=== PATIENT | male | born 1990 | race Caucasian/White ===

== ENCOUNTER 2021-09-07 23:16 | Emergency (ER) | payer SELFPAY ==
[~2021-09-07] VITALS: Ht 172.7 cm; Wt 108.9 kg
--- NOTE | 2021-09-07 23:53 | ED Chest Pain ---
General Chief Complaint: COVID19 Suspect/Confirmed Stated Complaint: COVID+,CP Source: patient Exam Limitations: no limitations History of Present Illness Date Seen by Provider: September 07, 2021 Time Seen by Provider: 23:34 Initial Comments Patient to the ER by private conveyance from home with chief complaint of intermittent 10-second long sharp stabbing chest pain up under his left breast deep nonreproducible to direct palpation or deep inspiration for the past 5 or 6 hours. The pain comes about once per hour. Patient states he came home from a trip to [place] over the weekend and him and all of his friends tested positive yesterday on home COVID tests. He says he is getting over the worst of it no longer having the chills body aches or cough until tonight he started having the pain. One of his friends who is a nurse in the [employer] told him to come get checked out. He has no personal history of coronary disease diabetes hypertension. He did have hyperlipidemia but changed his diet and his cholesterol is normal and he does not take any medications for this now. He follows at [facility] for primary care. He smokes cannabis daily but does not use nicotine products or vaporizers. He denies any other recreational drug use or alcohol use. No familial early onset coronary disease. No cough, shortness of breath, hemoptysis. Allergies and Home Medications Allergies Coded Allergies: No Known Drug Allergies (Unverified , 09/07/21) Patient Home Medication List Home Medication List Reviewed: Yes Naproxen (Naprosyn) 500 Mg Tablet, 500 MG PO BID Prescribed by: AURORA TURNER on 09/08/21 0028 Prednisone (Prednisone) 20 Mg Tab, 40 MG PO DAILY Prescribed by: AURORA TURNER on 09/08/21 0028 Review of Systems Review of Systems Constitutional: No chills, No diaphoresis EENTM: No Blurred Vision, No Double Vision, No Eye Pain Respiratory: Denies Cough, Denies Shortness of Air, Denies Wheezing Cardiovascular: Chest Pain; Denies Edema, Denies Lightheadedness Gastrointestinal: Denies Constipated, Denies Diarrhea, Denies Nausea Genitourinary: Denies Burning, Denies Discharge Musculoskeletal: No back pain, No joint pain All Other Systems Reviewed Negative Unless Noted: Yes Past Egbhjlq-Gusswt-Gfojjy Hx Patient Social History Tobacco Use?: No Use of E-Cig and/or Vaping dev: No Substance use?: Yes Substance type: Marijuana Alcohol Use?: No Physical Exam Vital Signs Vital Signs - First Documented Capillary Refill : Height, Weight, BMI Height: '" Weight: lbs. oz. kg; BMI Method: General Appearance: No Apparent Distress, WD/WN HEENT: PERRL/EOMI, TMs Normal, Normal ENT Inspection, Pharynx Normal, Moist M ucous Membranes Neck: Full Range of Motion, Normal Inspection Respiratory: Chest Non Tender, Lungs Clear, Normal Breath Sounds, No Accessory Muscle Use, No Respiratory Distress Cardiovascular: Regular Rate, Rhythm, No Edema, Normal Peripheral Pulses Extremity: Normal Capillary Refill, Normal Inspection, No Calf Tenderness, No Pedal Edema Neurologic/Psychiatric: Alert, Oriented x3 Skin: Normal Color, Warm/Dry Progress/Results/Core Measures Results/Orders Lab Results Laboratory Tests Test 09/07/21 23:52 Range/Units White Blood Count 14.0 H 4.3-11.0 10^3/uL Red Blood Count 5.23 4.30-5.52 10^6/uL Hemoglobin 14.9 13.3-17.7 g/dL Hematocrit 44 40-54 % Mean Corpuscular Volume 84 80-99 fL Mean Corpuscular Hemoglobin 29 25-34 pg Mean Corpuscular Hemoglobin Concent 34 32-36 g/dL Red Cell Distribution Width 14.6 H 10.0-14.5 % Platelet Count 313 130-400 10^3/uL Mean Platelet Volume 10.4 9.0-12.2 fL Immature Granulocyte % (Auto) 0 % Neutrophils (%) (Auto) 71 42-75 % Lymphocytes (%) (Auto) 18 12-44 % Monocytes (%) (Auto) 11 0-12 % Eosinophils (%) (Auto) 0 0-10 % Basophils (%) (Auto) 0 0-10 % Neutrophils # (Auto) 9.9 H 1.8-7.8 10^3/uL Lymphocytes # (Auto) 2.5 1.0-4.0 10^3/uL Monocytes # (Auto) 1.5 H 0.0-1.0 10^3/uL Eosinophils # (Auto) 0.0 0.0-0.3 10^3/uL Basophils # (Auto) 0.0 0.0-0.1 10^3/uL Immature Granulocyte # (Auto) 0.0 0.0-0.1 10^3/uL Neutrophils % (Manual) 75 % Lymphocytes % (Manual) 16 % Monocytes % (Manual) 7 % Eosinophils % (Manual) 1 % Reactive Lymphocytes 1 % Smudge Cells MOD Clumped Platelets NONE SEEN Hypochromasia SLIGHT Poikilocytosis SLIGHT Anisocytosis SLIGHT Microcytosis SLIGHT Sodium Level 141 135-145 MMOL/L Potassium Level 3.9 3.6-5.0 MMOL/L Chloride Level 104 98-107 MMOL/L Carbon Dioxide Level 25 21-32 MMOL/L Anion Gap 12 5-14 MMOL/L Blood Urea Nitrogen 11 7-18 MG/DL Creatinine 1.07 0.60-1.30 MG/DL Estimat Glomerular Filtration Rate 96 BUN/Creatinine Ratio 10 Glucose Level 106 H 70-105 MG/DL Calcium Level 8.9 8.5-10.1 MG/DL Corrected Calcium 8.7 8.5-10.1 MG/DL Total Bilirubin 0.5 0.1-1.0 MG/DL Aspartate Amino Transf (AST/SGOT) 29 5-34 U/L Alanine Aminotransferase (ALT/SGPT) 43 0-55 U/L Alkaline Phosphatase 53 40-136 U/L Troponin I < 0.028 <0.028 NG/ML C-Reactive Protein High Sensitivity 2.04 H 0.00-0.50 MG/DL Total Protein 6.8 6.4-8.2 GM/DL Albumin 4.2 3.2-4.5 GM/DL My Orders Orders - JOHNNY,AURORA J Continuous Ekg Monitoring (09/07/21 23:28) Ekg Tracing (09/07/21 23:28) Covid-19 External Lab Results (09/07/21 23:45) Cbc With Automated Diff (09/07/21 23:45) Comprehensive Metabolic Panel (09/07/21 23:45) Hs C Reactive Protein (09/07/21 23:45) Troponin I [place] (09/07/21 23:45) Manual Differential (09/07/21 23:52) Chest 1 View, Ap/Pa Only (09/08/21 00:01) Naproxen Tablet (Naprosyn Tablet) (09/08/21 00:45) Naproxen Tablet (Naprosyn Tablet) (09/08/21 02:00) Vital Signs/I&O 09/07/21 09/07/21 09/08/21 23:36 23:36 00:43 Temp 37.1 37.1 Pulse 80 80 Resp 16 16 B/P (MAP) 123/90 (101) 123/90 Pulse Ox 97 97 O2 Delivery Room Air Room Air Room Air Progress Progress Note #1: Time: 23:50 Progress Note Patient is not experiencing any pain at this time. We did offer some Toradol as an anti-inflammatory which he declined. I suspect he is having pleuritic pain based on his history. Plan to get some labs including a troponin, an EKG and a chest x-ray to rule out a pneumonia. Well's Criteria: 0.0 points. Low risk group: 1.3% chance of PE in an ED population. PERC: 0 criteria; No need for further workup, as <2% chance of PE. If no criteria are positive and clinicians pre-test probability is <15%, PERC Rule criteria are satisfied. Lung sounds are heard bilaterally, clear. Pneumonia is less likely. Pneumothorax is unlikely. Progress Note #2: Time: 00:36 Progress Note Naproxen 500 mg. Less likely myocarditis/pericarditis and more likely pleurisy. Initial ECG Impression Date: September 07, 2021 Initial ECG Impression Time: 23:40 Initial ECG Rate: 78 Initial ECG Rhythm: Normal Sinus Initial ECG Intervals: Normal Initial ECG Impression: Normal Initial ECG Comparisson: No Previous ECG Available Diagnostic Imaging Diagonstic Imaging: Xray Plain Films/CT/US/NM/MRI: chest Comments No acute cardiopulmonary process on 1 view chest x-ray. Osseous structures unremarkable. Unremarkable bowel gas pattern under the diaphragm. No free air. [facility] [place] [place] NAME: GINI HENSLEY [facility] REC#: [id number] PT STATUS: DEP ER : 1990 PHYSICIAN: AURORA TURNER MD ADMIT DATE: 09/07/21/ER Signed Date of Exam:09/08/21 CHEST 1 VIEW, AP/PA ONLY EXAMINATION: Chest radiograph, portable AP view. DATE: 09/08/2021 12:19 AM INDICATION: 30-year-old male, chest pain. COMPARISON: None. FINDINGS: Heart size and mediastinal contours are unremarkable. There is no identified pneumothorax. There is no large pleural effusion. There is no identified focal airspace consolidation. IMPRESSION: No identified acute cardiopulmonary abnormality. Dictated by: Dictated on workstation # [id number] Dict: 09/08/21 0658 Trans: 09/08/2142 [facility] [id number] Interpreted by: ANNIE RODAS MD Electronically signed by: ANNIE RODAS MD 09/08/2142 Reviewed: Reviewed by Me Departure Impression Primary Impression: Pleurisy Additional Impression: COVID-19 Disposition: HOME, SELF-CARE Condition: Stable Departure-Patient Inst. Decision time for Depature: 00:20 Referrals: NO,LOCAL PHYSICIAN (PCP) Primary Care Physician Patient Instructions: COVID-19 (DC), Pleuritic Chest Pain (DC) Add. Discharge Instructions: Vapor rub such as Vicks or Mentholatum as necessary for pain. Tylenol 1000 mg every 8 hours as needed for pain. Naproxen 500 mg twice a day until the pains go away. If you are not seeing some improvement in 3 or 4 days then you can start taking the steroid. Prednisone 2 tablets daily for 5 days to reduce inflammation in the chest wall leading to your pain. Return to the ER for intractable pain especially accompanied with shortness of air or other worrisome symptoms. All discharge instructions reviewed with patient and/or family. Voiced understanding. Scripts Prednisone (Prednisone) 20 Mg Tab 40 MG PO DAILY for 5 Days, #10 TAB 0 Refills Prov: AURORA TURNER 09/08/21 Naproxen (Naprosyn) 500 Mg Tablet 500 MG PO BID, #30 TAB 0 Refills Prov: AURORA TURNER 09/08/21 AURORA TURNER September 07, 2021 23:53
[2021-09-07 23:58] LABS: BASOPHILS % (AUTO) 0 % (0-10); EOSINOPHILS % (AUTO) 0 % (0-10); HEMATOCRIT 44 % (40-54); HEMOGLOBIN 14.9 g/dL (13.3-17.7); LYMPHOCYTES # (AUTO) 2.5 10^3/uL (1.0-4.0); LYMPHOCYTES % (AUTO) 18 % (12-44); MEAN CORPUSCULAR HEMOGLOBIN 29 pg (25-34); MEAN CORPUSCULAR HGB CONC 34 g/dL (32-36); MEAN CORPUSCULAR VOLUME 84 fL (80-99); MEAN PLATELET VOLUME 10.4 fL (9.0-12.2); MONOCYTES # (AUTO) 1.5 10^3/uL (0.0-1.0); MONOCYTES % (AUTO) 11 % (0-12); NEUTROPHILS # (AUTO) 9.9 10^3/uL (1.8-7.8); NEUTROPHILS % (AUTO) 71 % (42-75); PLATELET COUNT 313 10^3/uL (130-400)
[2021-09-08 00:11] LABS: ALBUMIN 4.2 GM/DL (3.2-4.5); CHLORIDE 104 MMOL/L (98-107); POTASSIUM 3.9 MMOL/L (3.6-5.0); SODIUM 141 MMOL/L (135-145)
[2021-09-08 00:12] LABS: CALCIUM 8.9 MG/DL (8.5-10.1)
[2021-09-08 00:13] LABS: GLUCOSE 106 MG/DL (70-105); TOTAL PROTEIN 6.8 GM/DL (6.4-8.2)
[2021-09-08 00:15] LABS: BILIRUBIN,TOTAL 0.5 MG/DL (0.1-1.0); CARBON DIOXIDE 25 MMOL/L (21-32)
[2021-09-08 00:17] LABS: ALKALINE PHOSPHATASE 53 U/L (40-136); CREATININE SERUM 1.07 MG/DL (0.60-1.30); GFR ESTIMATED 96
[2021-09-08 00:18] LABS: BUN/CREATININE RATIO 10
[2021-09-08 00:20] LABS: ALANINE AMINOTRANSFERASE 43 U/L (0-55)
[2021-09-08] MEDS ORDERED: NAPR-1071 PO (00:28)
[2021-09-08] MEDS ORDERED: PRD20T PO (00:28)
[2021-09-08 00:43] VITALS: BP 123/90
[2021-09-08] MEDS ORDERED: NAPROXEN 250 MG (NAPROSYN) TABLET PO ONE ×2 (00:45→02:00)
[2021-09-08 00:56] LABS: EOSINOPHILS % (MANUAL) 1 %; LYMPHOCYTES % (MANUAL) 16 %; MONOCYTES % (MANUAL) 7 %; NEUTROPHILS % (MANUAL) 75 %
[2021-09-08 00:57] LABS: ANISOCYTOSIS SLIGHT; HYPOCHROMASIA SLIGHT; MICROCYTOSIS SLIGHT; PLATELET CLUMPS NONE SEEN; POIKILOCYTOSIS SLIGHT; REACTIVE LYMPHOCYTES 1 %
--- NOTE | 2021-09-08 07:03 | Diagnostic Imaging Report ---
EXAMINATION: Chest radiograph, portable AP view. DATE: 09/08/2021 12:19 AM INDICATION: 30-year-old male, chest pain. COMPARISON: None. FINDINGS: Heart size and mediastinal contours are unremarkable. There is no identified pneumothorax. There is no large pleural effusion. There is no identified focal airspace consolidation. IMPRESSION: No identified acute cardiopulmonary abnormality. Dictated by: Dictated on workstation # [id number]
== END 2021-09-08 00:43 | disposition home or self-care (01) ==
LOC: ER 23:20
DX: U07.1 COVID-19 (principal); E78.5 Hyperlipidemia, unspecified
CPT/HCPCS: 36415; 71045; 80053; 84484; 85007; 85027; 86141; 93005